=== PATIENT | female | born 1975 | race Caucasian/White ===

== ENCOUNTER 2017-02-10 14:30 | Outpatient (RCR) | payer OTHER ==
[~2017-02-10 14:30] MED LIST: MOTRIN800 MG PO; NO HOME MEDICATIONS; VICODIN 5/5001 UDTAB PO
== END 2017-03-12 09:54 ==
LOC: WSPT 14:30
DX: M54.9 Dorsalgia, unspecified (principal)
CPT/HCPCS: G0283-GP

== ENCOUNTER → 2017-02-17 | Outpatient (CLI) | payer OTHER | LOC: MC.RAD 11:00 | DX: Z12.31 Encounter for screening mammogram for malignant neoplasm of breast (principal) ==

== ENCOUNTER → 2018-06-01 | Outpatient (CLI) | payer OTHER | LOC: COL.RAD 08:09 | DX: K21.9 Gastro-esophageal reflux disease without esophagitis (principal); K29.70 Gastritis, unspecified, without bleeding ==

== ENCOUNTER → 2018-06-08 | Outpatient (CLI) | payer OTHER | LOC: COL.RAD 08:36 | DX: K21.9 Gastro-esophageal reflux disease without esophagitis (principal); K29.70 Gastritis, unspecified, without bleeding | CPT/HCPCS: A9541 ==

== ENCOUNTER → 2024-01-16 | Outpatient (CLI) | payer OTHER | LOC: MC.RAD 13:49 | DX: Z12.31 Encounter for screening mammogram for malignant neoplasm of breast (principal) ==